=== PATIENT | female | born 1945 | race Caucasian/White ===

== ENCOUNTER 2016-05-12 15:13 | Day surgery (SDC) | payer MEDICARE, BC ==
[~2016-05-12] VITALS: Ht 157.5 cm; Wt 66.6 kg
--- NOTE | ~2016-05-12 | OR ---
PATIENT'S NAME: ASHLIE FIGUEROA [facility] AGE: 70 Y [address] ROOM: [address] [address] LOCATION: [facility] ADMIT DATE: 05/12/2016 OR/Procedure Report DISCHARGE DATE: FAMILY PHYSICIAN: Maria G Block APRN ATTENDING PHYSICIAN: Harjinder Galindo SURGEON: Harjinder Galindo MD AURIST: Luma Galarza PA-C. DATE OF PROCEDURE: 05/12/2016 PREOPERATIVE DIAGNOSIS: Acute appendicitis. POSTOPERATIVE DIAGNOSIS: Acute appendicitis. PROCEDURE: Laparoscopic appendectomy. FINDINGS: The appendix was necrotic. The base was without significant abnormalities. No gross feculent peritonitis. ESTIMATED BLOOD LOSS: Less than 20 mL. COMPLICATIONS: None. INDICATIONS: The patient is a 70-year-old female who presented with abdominal pain right lower quadrant. She had a CT scan that revealed appendicitis. We discussed appendectomy with the patient, the risks, benefits, and alternatives, and she elected to proceed. DESCRIPTION OF PROCEDURE: The patient was taken to the operating room, she was placed supine, she was given IV sedation, subsequently intubated. Her abdomen was prepped with ChloraPrep and sterilely draped. Local anesthetic was infiltrated just inferior to the umbilicus. A transverse incision was created. The abdomen was elevated. A Veress needle was inserted. Pneumoperitoneum was induced. Following this, a 5-mm trocar was inserted followed by insertion of the camera. There was no injury from initial trocar placement. Two more trocars were then positioned, a 5-mm suprapubic and a 12- mm left lower quadrant port. Skin overlying peritoneum was 1st anesthetized prior to making these incisions. Both of these trocars were inserted under direct visualization. The appendix was able to be identified in the right lower quadrant. It was necrotic. There was no gross feculent peritonitis. The appendix was elevated. The base appeared relatively normal. A window was able to be created at the base of the appendix. A laparoscopic stapler was inserted and fired across the base of the appendix. A second staple load was placed across the mesoappendix. The appendix was then placed in an EndoCatch bag and brought out through the left lower quadrant port site. The operative field was then inspected. It appeared hemostatic. The staple lines appeared PATIENT'S NAME: ASHLIE FIGUEROA [facility] AGE: 70 Y [address] ROOM: [place] [address] LOCATION: [facility] ADMIT DATE: 05/12/2016 OR/Procedure Report DISCHARGE DATE: FAMILY PHYSICIAN: Maria G Block APRN ATTENDING PHYSICIAN: Harjinder Galindo. The area was copiously irrigated. The fluid was removed. The pneumoperitoneum was then released. The trocars were removed. The trocar sites appeared hemostatic. The fascia of the 12-mm port site was approximated with 0 Vicryl suture followed by skin closure of all 3 port sites with 4-0 Monocryl suture. Kendrichard Steveter was necessary for retraction and visualization throughout the entire procedure. The patient tolerated the procedure well. MD FRANKY JOHNSON/modl /[id number] d: 05/13/16 0130 t: 05/16/16 1454, OPERATIVE SUMMARY
--- NOTE | ~2016-05-12 | HP ---
PATIENT'S NAME: TAMMIE FOREMAN [facility] AGE: 70 Y [address] ROOM: [place] [address] LOCATION: [facility] ADMIT DATE: 05/12/2016 History & Physical DISCHARGE DATE: FAMILY PHYSICIAN: Maria G Block APRN ATTENDING PHYSICIAN: Harjinder Galindo DATE OF SERVICE: CHIEF COMPLAINT: Acute appendicitis. HISTORY OF PRESENT ILLNESS: Tammie Foreman is a 70-year-old female, who presented to the emergency room at [facility] today with complaints of right lower quadrant abdominal pain. The patient had evaluation at [facility], but then decided she wanted to have surgery at [facility], and therefore, was transferred by private auto. The patient states that she had some gas pain last evening and through the night. She got up early this morning and had a bowel movement which was hard. She states that she has had some constipation lately. As the day went on, she developed more pain in the right lower quadrant and realized that she needed to be evaluated. She states that she did not eat breakfast knowing that something was wrong. Evaluation in [facility] included a CBC that showed a white blood cell count elevated at 15,000. Her CMP was within normal limits. Amylase and lipase were normal. Urinalysis showed a trace of blood, but otherwise, within normal limits. A CT scan was done that showed changes consistent with acute appendicitis. There was an incidental very small umbilical hernia noted. PAST MEDICAL ALLERGIES: ALLERGIES: TO BARBITURATES, BELLADONNA, ALKALOIDS, GABAPENTIN, AND DICYCLOMINE. MEDICATIONS: Include, 1. Potassium chloride. 2. Xanax. 3. Robaxin. 4. Bystolic. 5. Bumex. 6. Singulair. 7. Nelson Thyroid. 8. Albuterol. PATIENT'S NAME: TAMMIE FOREMAN [facility] AGE: 70 Y [address] ROOM: [place] [address] LOCATION: [facility] ADMIT DATE: 05/12/2016 History & Physical DISCHARGE DATE: FAMILY PHYSICIAN: Maria G Block APRN ATTENDING PHYSICIAN: Harjinder Galindo ILLNESSES: Include, 1. Hypothyroid. 2. Hypertension. 3. Hypercholesterolemia. 4. History of recurrent bronchitis. OPERATIONS: 1. Hysterectomy. 2. Right inguinal hernia repair with mesh. 3. An ankle fracture. 4. Bilateral knee scopes. 5. Colonoscopy within the past year or so. SOCIAL HISTORY: The patient is . She lives in [place]. She does not work outside the home. She is a nonsmoker. Rarely consumes alcohol. FAMILY HISTORY: Not obtained. REVIEW OF SYSTEMS: The patient denies any sinus congestion, ear pain, or throat pain. She has a history of a hacky cough, but nothing that she is concerned about at this time in regard to infection. No fevers. No shortness of breath. No chest pain. She occasionally has problems with hemorrhoids. She has had some constipation. She believes that she may have a recurrent right inguinal hernia. Denies any pain, frequency, or urgency of urination. No history of blood clots. No history of any heart problems. No history of cancer. PHYSICAL EXAMINATION: VITAL SIGNS: Per nursing sheet. GENERAL: Healthy-appearing 70-year-old female, who is alert, oriented, pleasant, cooperative. EYES, EARS, NOSE, AND THROAT: Grossly normal. LUNGS: Clear. HEART: Regular. ABDOMEN: Has few bowel sounds present. Abdomen is soft, very tender in the right lower quadrant. The patient has scars across the lower abdomen consistent with her hysterectomy. The patient appears to move all extremities equally. LABORATORY DATA: Lab work per HPI, hemoglobin 13.6, hematocrit 41, platelets 215, again white blood cell count 15,000. CMP normal. CT per HPI. PATIENT'S NAME: TAMMIE FOREMAN [facility] AGE: 70 Y [address] ROOM: [address] [address] LOCATION: [facility] ADMIT DATE: 05/12/2016 History & Physical DISCHARGE DATE: FAMILY PHYSICIAN: Maria G Block APRN ATTENDING PHYSICIAN: Harjinder Galindo ASSESSMENT: A 70-year-old female with: 1. Acute appendicitis. 2. Very small umbilical hernia per CT scan. 3. Possible recurrent right inguinal hernia. PLAN: I discussed the diagnosis of appendicitis and recommendations to proceed with removal of the appendix. I discussed the operation along with the risks of bleeding, infection, abscess formation, hernia, etc. I discussed the expected postoperative recovery with the patient being kept in overnight, home tomorrow, and back to normal activities as she tolerates. I encouraged the patient to be up out of bed as soon as possible tonight. The patient's questions and concerns were addressed. Dr. Galindo has also evaluated the patient, has reviewed over the indications for surgery, alternative treatments for appendicitis, the risks, benefits, etc. The patient's questions and concerns have been addressed. She will be asked to sign a consent for removal of appendix. She will receive Mefoxin [address] Galindo is involved in assessment and plan and is available for supervision. MESSI PISANO PA-C FOR MD CATRACHITO JOHNSON/rey /[id number] D: [id number] T: [id number] HISTORY & PHYSICAL
[2016-05-12] MEDS ORDERED: K-TAB ER20 MEQ PO (15:49)
[2016-05-12] MEDS ORDERED: XANAX0.5 MG PO ×2 (15:50→15:51)
[2016-05-12] MEDS ORDERED: BYSTOLIC5 MG PO (15:52)
[2016-05-12] MEDS ORDERED: ROBAXIN750 MG PO (15:52)
[2016-05-12] MEDS ORDERED: SINGULAIR10 MG PO (15:53)
[2016-05-12] MEDS ORDERED: BUMEX1 MG PO (15:53)
[2016-05-12] MEDS ORDERED: ARMOUR THYROID30 MG PO (15:55)
[2016-05-12] MEDS ORDERED: NEXIUM2.5 MG PO (16:13)
[2016-05-12] MEDS ORDERED: PROVENTIL OR V6.7 GM INH (16:14)
[2016-05-12 19:49] LABS: HEMATOCRIT 37.7 % (33.0-46.0); HEMOGLOBIN 12.3 g/dL (10.0-15.0); MCH 30.9 pg (27.0-34.0); MCHC 32.6 gm/dL (32.0-36.5); MCV 94.7 fl (83.0-98.0); MPV 9.3 fl (9.4-12.4); PLATELET COUNT 180 K/uL (150-450); RBC 3.98 M/uL (3.50-5.50); RDW-CV 13.1 % (11.9-14.6)
[2016-05-12 19:51] LABS: WBC 18.7 K/uL (4.0-11.0)
[2016-05-12 20:31] LABS: ABSOLUTE NEUTROPHIL CT (ANC) 16.5 K/uL (1.8-7.8); BANDED NEUTROPHIL # 0.2 K/uL (0.0-0.1); BANDED NEUTROPHILS % 1 %; LYMPHOCYTE # 1.7 K/uL (0.8-4.0); LYMPHOCYTE % 9 %; MONOCYTE # 0.6 K/uL (0.0-1.0); SEGMENTED NEUTROPHIL # 16.3 K/uL (1.8-7.8); SEGMENTED NEUTROPHIL % 87 %
--- NOTE | 2016-05-13 04:36 | NUR ---
Patient alert and oriented x3, very pleasant and cooperative, dressings are clean dry and intact, bowel sounds are hypoactive, has been up and walked in the hallway, ambulating well stand by assist, voiding well, did take a Narco at around 0300, plans to discharge today
--- NOTE | 2016-05-13 09:35 | NUR ---
Introduced self/role to patient. She lives in [place] with her who farms. Her daughter is a nurse here and will transporting her home. She could not think of any unmet needs. No DME needed. Wrote my name on her marker board.
[2016-05-13] MEDS ORDERED: NORCO 5-325 TA1 EACH PO (12:46)
--- NOTE | 2016-05-13 14:38 | NUR ---
Pt discharged today to go home. Daughter here to pick her up. Pt has been up ad diego in halls and caprice well. Ate regular diet past 2 meals. Denies nausea. Pt has abd soreness rated at 2 this shift. Pt says passed small amt flatus. Abd feels slightly distended to pt. Has 3 small abd dressings with tegaderm that are dry and intact. Pt voids well. Pt understands discharge instruction, home medications, physician followup and activity. PT discharged in stable condition per wheelchair to front door at 1250
== END 2016-05-13 13:00 | disposition disaster alternative care site (69) ==
LOC: G3N 15:13 → GSDC 15:13 → GMSU 15:13 → G3N 19:17 → GSDC 05-13 13:00
PROVIDERS: Surgery
PROC: 0DTJ4ZZ Resection of Appendix, Percutaneous Endoscopic Approach (ICD-10-PCS; principal; 2016-05-12)
DX: K35.80 Unspecified acute appendicitis (principal); E03.9 Hypothyroidism, unspecified; I10 Essential (primary) hypertension; E78.00 Pure hypercholesterolemia, unspecified; K42.9 Umbilical hernia without obstruction or gangrene; J42 Unspecified chronic bronchitis; Z79.899 Other long term (current) drug therapy
CPT/HCPCS: J0694; J7030